=== PATIENT | female | born 1995 | race Caucasian/White ===

== ENCOUNTER 2023-01-08 20:19 | Emergency (ER) | payer SELFPAY ==
[~2023-01-08] VITALS: Ht 152.4 cm; Wt 45.4 kg
== END 2023-01-08 23:01 | disposition left against medical advice (07) ==
LOC: ED 20:19
DX: L23.7 Allergic contact dermatitis due to plants, except food (principal); Z53.21 Procedure and treatment not carried out due to patient leaving prior to being seen by health care provider